=== PATIENT | female | born 1945 | race Caucasian/White ===

== ENCOUNTER 2024-12-12 11:14 | Outpatient (OUT) | payer MEDICARE, OTHER, SELFPAY ==
[2024-12-12 12:16] LABS: Lactate Dehydrogenase 198 U/L (81-234)
[2024-12-13 04:07] LABS: CEA 3.1 ng/mL (0.0-4.7)
[2024-12-13 08:08] LABS: HCG Tumor Marker 2 mIU/mL (.)
[2024-12-13 12:13] LABS: AFP, Serum, Tumor Marker 2.1 ng/mL (0.0-8.7); Cancer Antigen (CA) 125 21.4 U/mL (0.0-38.1)
== END 2024-12-12 11:15 | disposition home or self-care (01) ==
PROVIDERS: PCP Family Medicine; Visit Provider Obstetrics & Gynecology
DX: R19.09 Other intra-abdominal and pelvic swelling, mass and lump (principal); R93.89 Abnormal findings on diagnostic imaging of other specified body structures; N83.00 Follicular cyst of ovary, unspecified side; Z12.73 Encounter for screening for malignant neoplasm of ovary
CPT/HCPCS: 36415; 82105; 82378; 83615; 84702; 86304